=== PATIENT | female | born 1990 | race Caucasian/White ===

== ENCOUNTER 2018-05-28 15:16 | Emergency (ER) | payer SELFPAY ==
[~2018-05-28] VITALS: Ht 149.9 cm; Wt 77.6 kg
[2018-05-28] MEDS ORDERED: oxyCODONE/APAP 5/325 1 TAB TABLET PO ONE (16:00)
[2018-05-28] MEDS ORDERED: TRAM50TA PO (16:09)
[2018-05-28 16:15] VITALS: BP 153/104
--- NOTE | 2018-05-31 17:27 | ED.ADGEN ---
Past History Past Medical History: Hypertension, Other Past Surgical History: Appendectomy Alcohol Use: Occasionally Drug Use: None Adult General Chief Complaint Chief Complaint Migraine headache HPI HPI Patient is a 27-year-old female with chronic migraine headaches who presents with intermittent daily headaches for the past 3 weeks consistent location, pattern in severity as her chronic migraines. Patient states she's been taking her beta mary, Excedrin Migraine limited relief. She denies new symptoms, progression of existing symptoms, or stressors. Patient has recently had a CT of her head in the past 3 months which she states is nonacute. Patient contacted her primary care physician is not able to be seen for several days prompting her visitthe ED today[] Review of Systems Review of Systems View symptoms as per history of present illness. All other review symptoms are negative. All other systems were reviewed and found to be within normal limits, except as documented in this note. Current Medications Current Medications Current Medications Medications (Trade) Dose Ordered Sig/Joshua Start Time Stop Time Status Last Admin Dose Admin Oxycodone/ Acetaminophen (Percocet 5/325) 1 tab 1X ONCE 05/28/18 16:00 05/28/18 16:07 DC 05/28/18 16:01 1 TAB Allergies Allergies Allergies Coded Allergies Type Severity Reaction Last Updated Verified No Known Drug Allergies 05/28/18 No Physical Exam Physical Exam Constitutional: Well developed, well nourished, no acute distress, non-toxic appearance. [] HENT: Normocephalic, atraumatic, bilateral external ears normal, oropharynx moist, no oral exudates, nose normal. [] Eyes: PERRLA, EOMI, conjunctiva normal, no discharge. [] Neck: Normal range of motion, no tenderness, supple, no stridor. [] Cardiovascular:Heart rate regular rhythm, no murmur [] Lungs & Thorax: Bilateral breath sounds clear to auscultation [] Extremities: No tenderness, no cyanosis, no clubbing, ROM intact, no edema. [] Neurologic: Alert and oriented X 3 cranial nerves II through XII grossly intact , normal motor function, normal sensory function, no focal deficits noted. [] Psychologic: Affect normal, judgement normal, mood normal. [] Current Patient Data Vital Signs Vital Signs Date Time Temp Pulse Resp B/P (MAP) Pulse Ox O2 Delivery O2 Flow Rate FiO2 05/28/18 16:15 86 18 153/104 (120) 97 Room Air 05/28/18 15:16 97.8 EKG EKG [] Radiology/Procedures Radiology/Procedures [] Course & Med Decision Making Course & Med Decision Making Pertinent Labs and Imaging studies reviewed. (See chart for details) [Chronic migraine headaches, without focal neurologic deficits. Symptoms improved in the emergency department. Recommend PCPneurology follow-up with supportive care. Return precautions reviewed.] Final Impression Final Impression [#1 chronic current migraine headaches] Willie Disclaimer Dragon Disclaimer This electronic medical record was generated, in whole or in part, using a voice recognition dictation system. MIKAELA MUIR DO May 31, 2018 17:27
== END 2018-05-28 16:15 | disposition home or self-care (01) ==
LOC: ER 15:16
DX: G43.809 Other migraine, not intractable, without status migrainosus (principal); I10 Essential (primary) hypertension
CPT/HCPCS: 99283

== ENCOUNTER 2019-07-07 13:57 | Emergency (ER) | payer MEDICAID ==
[~2019-07-07] VITALS: Ht 149.9 cm; Wt 78.0 kg
[~2019-07-07 13:57] MED LIST: TRAM50TA PO
[2019-07-07 14:06] VITALS: BP 186/108
--- NOTE | 2019-07-07 14:43 | PHYS DOC ---
Past History Past Medical History: Hypertension, Other Past Surgical History: Appendectomy Alcohol Use: None Drug Use: None Adult General Chief Complaint Chief Complaint: HYPERTENSION HPI HPI [id number]-dwqr-nue female presents with hypertension. She is . She was at the [facility] and she was found have a blood pressure 186 over low 100s. They were able to get it down to 150s over 106. There were concerned and told her she did come the emergency room. The patient tells me that she has had high blood pressure intermittently for several years. She has hypertension without p regnancy. She has no symptoms. She is does not have headache or anything. She used to be on lisinopril which was switched to labetalol that she wanted of kids. She is out of that medication at this time. She was told to stop the medication because her blood pressure was normal when she goes to the store takes it at home. She has no complaints at this time. Review of Systems Review of Systems Constitutional: Denies fever or chills [] Eyes: Denies change in visual acuity, redness, or eye pain [] HENT: Denies nasal congestion or sore throat [] Respiratory: Denies cough or shortness of breath [] Cardiovascular: No additional information not addressed in HPI [] GI: Denies abdominal pain, nausea, vomiting, bloody stools or diarrhea [] : Denies dysuria or hematuria [] Musculoskeletal: Denies back pain or joint pain [] Integument: Denies rash or skin lesions [] Neurologic: Denies headache, focal weakness or sensory changes [] Endocrine: Denies polyuria or polydipsia [] All other systems were reviewed and found to be within normal limits, except as documented in this note. Allergies Allergies Allergies Coded Allergies Type Severity Reaction Last Updated Verified No Known Drug Allergies 05/28/18 No Physical Exam Physical Exam Constitutional: Well developed, well nourished, no acute distress, non-toxic appearance. [] HENT: Normocephalic, atraumatic, bilateral external ears normal, oropharynx moist, no oral exudates, nose normal. [] Eyes: PERRLA, EOMI, conjunctiva normal, no discharge. [] Neck: Normal range of motion, no tenderness, supple, no stridor. [] Cardiovascular:Heart rate regular rhythm, no murmur [] Lungs & Thorax: Bilateral breath sounds clear to auscultation [] Abdomen: Bowel sounds normal, soft, no tenderness, no masses, no pulsatile masses. [] Skin: Warm, dry, no erythema, no rash. [] Back: No tenderness, no CVA tenderness. [] Extremities: No tenderness, no cyanosis, no clubbing, ROM intact, no edema. [] Neurologic: Alert and oriented X 3, normal motor function, normal sensory function, no focal deficits noted. [] Psychologic: Affect normal, judgement normal, mood normal. [] Current Patient Data Vital Signs Vital Signs Date Time Temp Pulse Resp B/P (MAP) Pulse Ox O2 Delivery O2 Flow Rate FiO2 07/07/19 14:06 98.4 85 18 186/108 (134) 99 Room Air EKG EKG [] Radiology/Procedures Radiology/Procedures [] Course & Med Decision Making Course & Med Decision Making Pertinent Labs and Imaging studies reviewed. (See chart for details) I had a long conversation with the patient. She will track her blood pressure at home and reported to her OB. 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 She is waiting for her state Medicaid to come through. This should happen soon. I do not believe that anything needs to be done at this time. She is stable for discharge at this time. [] Dragon Disclaimer Dragon Disclaimer This electronic medical record was generated, in whole or in part, using a voice recognition dictation system. Departure Departure: Impression: Primary Impression: and not yet delivered in first trimester Additional Impression: Hypertension during Disposition: 01 HOME, SELF-CARE Condition: STABLE Referrals: JAMESON SHAW (PCP) Patient Instructions: Hypertension During , [id number], - First Trimester, [id number] Problem Qualifiers MIKAELA VIGIL DO Jul 07, 2019 14:43
== END 2019-07-07 14:47 | disposition home or self-care (01) ==
LOC: ER 13:57
DX: O16.1 Unspecified maternal hypertension, first trimester (principal); Z90.49 Acquired absence of other specified parts of digestive tract; Z3A.00 Weeks of gestation of pregnancy not specified
CPT/HCPCS: 99281

== ENCOUNTER 2019-08-12 08:56 | Emergency (ER) | payer MEDICAID, OTHER ==
[~2019-08-12] VITALS: Ht 149.9 cm; Wt 78.0 kg
[2019-08-12] MEDS ORDERED: IV NORMAL SALINE 1,000ML 1,000 ML IV SCH (09:12)
[2019-08-12] MEDS ORDERED: BUTORPHANOL 2 MG VIAL. IVP ONE (09:15)
[2019-08-12] MEDS ORDERED: ONDANSETRON PF 4 MG/2 ML VIAL. IVP ONE (09:15)
--- NOTE | 2019-08-12 09:17 | PHYS DOC ---
Past History Past Medical History: Hypertension, Other Past Surgical History: Appendectomy Alcohol Use: None Drug Use: None Adult General Chief Complaint Chief Complaint: HEADACHE HPI HPI Patient is a 28-year-old female who presents with complaint of migraine headache for the last 2 weeks. Patient does indicate that she is at 14 weeks gestational age. She states that headache is primarily on the right hand side and she describes as throbbing in nature. She does admit to photophobia as well as nausea and vomiting. Patient states that she thinks she is getting a bit dehydrated. She denies any abdominal pain.[] Review of Systems Review of Systems Constitutional: Denies fever or chills [] Respiratory: Denies cough or shortness of breath [] Cardiovascular: No additional information not addressed in HPI [] GI: Denies abdominal pain. Complains of nausea and vomiting without diarrhea [] Integument: Denies rash or skin lesions [] Neurologic: Complains of headache without focal weakness or sensory changes [] All other systems were reviewed and found to be within normal limits, except as documented in this note. Allergies Allergies Allergies Coded Allergies Type Severity Reaction Last Updated Verified No Known Drug Allergies 05/28/18 No Physical Exam Physical Exam Constitutional: Well developed, well nourished, no acute distress, non-toxic appearance. [] HENT: Normocephalic, atraumatic, bilateral external ears normal, oropharynx moist, no oral exudates, nose normal. [] Eyes: PERRLA, EOMI, conjunctiva normal, no discharge. [] Neck: Normal range of motion, no tenderness, supple, no stridor. [] Cardiovascular:Heart rate regular rhythm, no murmur [] Lungs & Thorax: Bilateral breath sounds clear to auscultation [] Abdomen: Bowel sounds normal, soft, no tenderness. [] Skin: Warm, dry, no erythema, no rash. [] Extremities: No tenderness, no cyanosis, no clubbing, ROM intact. [] Neurologic: Alert and oriented X 3, no focal deficits noted. [] EKG EKG [] Radiology/Procedures Radiology/Procedures [] Course & Med Decision Making Course & Med Decision Making Pertinent Labs and Imaging studies reviewed. (See chart for details) [] Dragon Disclaimer Dragon Disclaimer This electronic medical record was generated, in whole or in part, using a voice recognition dictation system. Departure Departure: Impression: Primary Impression: Migraine Additional Impression: UTI (urinary tract infection) Disposition: 01 HOME, SELF-CARE Condition: STABLE Referrals: PCP,NO (PCP) Patient Instructions: Migraine Headache, Urinary Tract Infection Scripts Ondansetron (ONDANSETRON ODT) 4 Mg Tab.rapdis 1 TAB PO PRN Q6-8HRS PRN for NAUSEA, #12 TAB Prov: HERMAN STANTON Jr. DO 08/12/19 Nitrofurantoin Monohyd/M-Cryst (MACROBID 100 MG CAPSULE) 100 Mg Capsule 1 CAP PO BID for UTI for 7 Days, #14 CAP 0 Refills Prov: HERMAN STANTON Jr. DO 08/12/19 Problem Qualifiers Primary Impression: Migraine Migraine type: unspecified Status migrainosus presence: without status migrainosus Intractability: not intractable Qualified Codes: G43.909 - Migraine, unspecified, not intractable, without status migrainosus Additional Impression: UTI (urinary tract infection) Urinary tract infection type: site unspecified Hematuria presence: without hematuria Qualified Codes: N39.0 - Urinary tract infection, site not specified HERMAN STANTON Jr. DO Aug 12, 2019 09:17
[2019-08-12 09:51] LABS: BASO % 0 % (0-3); EOS % 0 % (0-3); HEMATOCRIT 39.3 % (36.0-47.0); HEMOGLOBIN 13.1 g/dL (12.0-15.5); LYMPH # 0.7 x10^3/uL (1.0-4.8); LYMPH % 9 % (24-48); MEAN CORPUSCULAR HEMOGLOBIN 29 pg (25-35); MEAN CORPUSCULAR HGB CONC 33 g/dL (31-37); MEAN CORPUSCULAR VOLUME 88 fL (79-100); MONO % 12 % (0-9); NEUT # 6.4 x10^3uL (1.8-7.7); NEUT % 79 % (31-73); PLATELET COUNT 247 x10^3/uL (140-400); RED BLOOD COUNT 4.46 x10^6/uL (3.50-5.40); RED CELL DISTRIBUTION WIDTH 14.9 % (11.5-14.5); WHITE BLOOD COUNT 8.1 x10^3/uL (4.0-11.0)
[2019-08-12 09:53] LABS: CALCIUM 8.7 mg/dL (8.5-10.1); CREATININE 0.6 mg/dL (0.6-1.0); POTASSIUM 3.7 mmol/L (3.5-5.1)
[2019-08-12 09:59] LABS: ALBUMIN 2.9 g/dL (3.4-5.0); ALBUMIN/GLOBULIN RATIO 0.7 (1.0-1.7); TOTAL BILIRUBIN 0.4 mg/dL (0.2-1.0); TOTAL PROTEIN 6.9 g/dL (6.4-8.2)
[2019-08-12 10:16] LABS: COLOR,URINE YELLOW
[2019-08-12 10:17] LABS: BACTERIA,URINE MANY /HPF (0-FEW); BILIRUBIN,URINE NEG (NEG); CLARITY,URINE CLOUDY; GLUCOSE,URINE NEG (NEG); NITRITE,URINE NEG (NEG); SQUAMOUS EPITHELIAL CELL,UR MANY /LPF; UROBILINOGEN,URINE 0.2 mg/dL (0.2 mg/dL); WBC,URINE 20-40 /HPF (0-4)
[2019-08-12] MEDS ORDERED: ONDA4TAB12 PO (10:27)
[2019-08-12] MEDS ORDERED: NITR100C62 PO (10:27)
== END 2019-08-12 10:03 | disposition home or self-care (01) ==
LOC: ER 08:56
DX: O23.41 Unspecified infection of urinary tract in pregnancy, first trimester (principal); O16.1 Unspecified maternal hypertension, first trimester; G43.909 Migraine, unspecified, not intractable, without status migrainosus; O21.9 Vomiting of pregnancy, unspecified; Z3A.14 14 weeks gestation of pregnancy
CPT/HCPCS: 36415; 80053; 81001; 83690; 85025; 87086; 96361; 96374; 96375; J0595; J2405; 99284-25; J7030

== ENCOUNTER 2020-01-20 23:26 | Emergency (ER) | payer OTHER ==
[~2020-01-20] VITALS: Ht 162.6 cm; Wt 88.3 kg
[2020-01-20 23:26] VITALS: BP 163/96
[~2020-01-20 23:26] MED LIST changes: +NITR100C62 PO; +ONDA4TAB12 PO
[2020-01-20] MEDS ORDERED: IV RINGERS SOLUTION,LACTATED 1,000 ML IV SCH (23:55)
--- NOTE | 2020-01-21 00:07 | PHYS DOC ---
Past History Past Medical History: Hypertension, Other Past Surgical History: Appendectomy Alcohol Use: None Drug Use: None General Adult EDM: Chief Complaint: ABDOMINAL PAIN IN HPI: HPI: "..I been hurting cheo.. up here on [place]...but this is my lst ...and I am high risks..because of my diabetes..hypertension... ...and past changes to my cervix..." Patient is a 29 year old female who presents with above hx and complaints of abdomen pain and planned delivery to be induced on the 01/30 at . Patient has been following at for care. Has been told she is a high risk because of hypertension and diabetes. Patient cheo presents with abdomen pain lower pelvic and left upper quadrant. Patient denies any trauma. Patient denies any intake of bad food. No recent travel or specific ill contacts. No history immunosuppression.. 1. Has had 3 lifetime sex partners. Patient denies any history of STDs. Patient has had a cervical treatment for abnormal cells. Review of Systems: Review of Systems: Constitutional: Denies fever or chills Eyes: Denies change in visual acuity HENT: Denies nasal congestion or sore throat Respiratory: Denies cough or shortness of breath Cardiovascular: Denies chest pain or edema GI: Complains of abdominal pain, nausea,. constipation. Denies vomiting, bloody stools or diarrhea : Denies dysuria Musculoskeletal: Denies back pain or joint pain Integument: Denies rash Neurologic: Denies headache, focal weakness or sensory changes Endocrine: Denies polyuria or polydipsia Lymphatic: Denies swollen glands Psychiatric: Denies depression or anxiety Heart Score: Risk Factors: Risk Factors: DM, Current or recent (<one month) smoker, HTN, HLP, family history of CAD, obesity. Risk Scores: Score 0 - 3: 2.5% MACE over next 6 weeks - Discharge Home Score 4 - 6: 20.3% MACE over next 6 weeks - Admit for Clinical Observation Score 7 - 10: 72.7% MACE over next 6 weeks - Early Invasive Strategies Family History: Family History: Noncontributory Current Medications: Current Meds: Current Medications Medications (Trade) Dose Ordered Sig/Joshua Start Time Stop Time Status Last Admin Dose Admin Lactated Ringer's 1,000 ml @ 1,000 mls/hr Q1H 01/20/20 23:55 01/21/20 00:54 UNV Allergies: Allergies: Allergies Coded Allergies Type Severity Reaction Last Updated Verified No Known Drug Allergies 05/28/18 No Physical Exam: PE: Constitutional: Moderate acute distress, non-toxic appearance. [] HENT: Normocephalic, atraumatic, bilateral external ears normal, oropharynx moist, no oral exudates, nose normal. [] Eyes: PERRLA, EOMI, conjunctiva normal, no discharge. Glasses Neck: Normal range of motion, no tenderness, supple, no stridor. [] Cardiovascular:Heart rate regular rhythm, no murmur [] Lungs & Thorax: Bilateral breath sounds equal at apex on auscultation [] Abdomen: Bowel sounds normal, soft, left upper quadrant tenderness, distended no masses, no pulsatile masses. [] Gravid. Os is closed. No cervical motion tenderness. Mild discharge. Hard stool in vault. Old surgery scars Skin: Warm, dry, no erythema, no rash. [] Back: No tenderness, no CVA tenderness. [] Extremities: No tenderness, no cyanosis, no clubbing, ROM intact, ankle edema. [] Neurologic: Alert and oriented X 3, normal motor function, normal sensory function, no focal deficits noted. [] DTRs +2 patella and brachial. Psychologic: Affect anxious, judgement normal, mood normal. [] EKG: EKG: [] Radiology/Procedures: Radiology/Procedures: [][address] [address] IMAGING REPORT Signed PATIENT: CORINA ROCHA ACCOUNT: [id number] : 1990 LOCATION: ER AGE: 29 SEX: F EXAM STATUS: REG ER ORD. PHYSICIAN: DEMOND HIGGINS MD REASON: ABD pain preg. PROCEDURE: OB LIMITED Study: US OB LIMITED Clinical Indication: Abdominal pain in the setting of a known . Comparison: None. Technique: Multiple grayscale images, color Doppler, and M-mode images of the uterus are obtained. Findings: Single intrauterine gestation in cephalic presentation. The placenta is anterior in location without evidence of placenta previa. The amount of amniotic fluid appears appropriate. Amniotic fluid index is 9.2 cm. Cervical length was not able to be measured. Biometrical data: BPD = 8.7 cm for 35 weeks 0 days. HC = 29.1 cm for 32 weeks 0 days. AC = 29.3 cm for 33 weeks 2 days. FL = 6.5 cm for 33 weeks 5 days. CI ratio = 95.8. HC/AC ratio = 0.99. FL/HC ratio = 22.5. FL/AC ratio = 22.3. Overall, the estimated sonographic gestational age is 33 weeks 4 days for an estimated date of delivery of 03/06/2020. The estimated date of delivery provided by the last menstrual period is 01/31/2020. Estimated weight is 2191 grams. A 4 chamber heart is identified with positive cardiac activity. The estimated heart rate is 144 beats per minute. A complete survey was not performed on this limited study. Impression: 1. Single live intrauterine gestation with estimated sonographic gestational age of 33 weeks 4 days corresponding to an estimated delivery date of 03/06/2020. Estimated delivery date by last menstrual period of01/31/2020. weight estimate of 2191 g which is below the 10th percentile (small for gestational age). 2. Amniotic fluid volume is within normal limits with an CARLOS of 9.2. Anterior placenta without previa. Cephalic presentation at this time. Cervical length was not able to be measured. Electronically signed by: TAMEKA BAEZA MD (01/21/2020 1:43 AM) [id number] DICTATED AND SIGNED BY: TAMEKA BAEZA MD DATE: 01/21/20 0143 CC: DEMOND HIGGINS MD; PCP,UNKNOWN ~ Course & Med Decision Making: Course & Med Decision Making Pertinent Labs and Imaging studies reviewed. (See chart for details) Patient stay on clear fluid diet next 24 hours. Patient follow-up pending culture. Patient must follow-up at her [facility] [employer] at because of her high risk secondary to hypertension and diabetes. Take meds as directed. Take only Tylenol for pain. Take Keflex 500 mg 3 times a day. Any further issues must follow-up at due to proximity her delivery time. Impression: 1. Intrauterine at 38 weeks and 4 days- Clinical. Wt./33 weeks and 4 days. 2. History of hypertension 3. History of gestational diabetes 4. UTI 5. Vaginal discharge- WBC's 6. BHCG 6080 7. Blood type O + positive 8. Hgb 10.5 9. Elevated Anselmo. Direct 0.5,AST 68, Alk Phos 233 10. Constipation [] Dragon Disclaimer: Dragon Disclaimer: This electronic medical record was generated, in whole or in part, using a voice recognition dictation system. Departure Departure: Disposition: HOME/RESIDENCE PRIOR TO ADM Condition: STABLE Referrals: PCP,UNKNOWN (PCP) Justification of Admission: Justification of Admission: Justification of Admission Dx: N/A Dragon Disclaimer This chart was dictated in whole or in part using Voice Recognition software in a busy, high-work load, and often noisy Emergency Department environment. It may contain unintended and wholly unrecognized errors or omissions. DEMOND HIGGINS MD Jan 21, 2020 00:07
[2020-01-21 01:03] LABS: BASO % 0 % (0-3); EOS % 0 % (0-3); HEMATOCRIT 32.6 % (36.0-47.0); HEMOGLOBIN 10.5 g/dL (12.0-15.5); LYMPH % 10 % (24-48); MEAN CORPUSCULAR HEMOGLOBIN 27 pg (25-35); MEAN CORPUSCULAR HGB CONC 32 g/dL (31-37); MEAN CORPUSCULAR VOLUME 83 fL (79-100); MONO # 0.5 x10^3/uL (0.0-1.1); MONO % 5 % (0-9); NEUT # 8.6 x10^3uL (1.8-7.7); NEUT % 85 % (31-73); PLATELET COUNT 253 x10^3/uL (140-400); RED BLOOD COUNT 3.95 x10^6/uL (3.50-5.40); RED CELL DISTRIBUTION WIDTH 16.9 % (11.5-14.5); WHITE BLOOD COUNT 10.2 x10^3/uL (4.0-11.0)
[2020-01-21 01:11] LABS: BARBITURATES NEG (NEG); BENZODIAZEPINES NEG (NEG); CANNABINOIDS NEG (NEG); COCAINE NEG (NEG); METHADONE NEG (NEG); OPIATES NEG (NEG); PHENCYCLIDINE NEG (NEG)
[2020-01-21 01:12] LABS: CALCIUM 9.6 mg/dL (8.5-10.1); CREATININE 0.9 mg/dL (0.6-1.0); POTASSIUM 3.7 mmol/L (3.5-5.1)
[2020-01-21 01:12] LABS: AMPHETAMINE/METHAMPHETAMINE NEG (NEG)
[2020-01-21 01:19] LABS: ALBUMIN 2.5 g/dL (3.4-5.0); DIRECT BILIRUBIN 0.5 mg/dL (0.0-0.2); TOTAL BILIRUBIN 0.7 mg/dL (0.2-1.0); TOTAL PROTEIN 7.2 g/dL (6.4-8.2)
[2020-01-21 01:28] LABS: BACTERIA,URINE FEW /HPF (0-FEW); BILIRUBIN,URINE SMALL (NEG); CLARITY,URINE HAZY; COLOR,URINE AMBER; GLUCOSE,URINE 100 mg/dL (NEG); NITRITE,URINE NEG (NEG); RBC,URINE 0 /HPF (0-2); SQUAMOUS EPITHELIAL CELL,UR MOD /LPF; UROBILINOGEN,URINE >=8.0 mg/dL (0.2 mg/dL)
--- NOTE | 2020-01-21 01:46 | RAD ---
Study: US OB LIMITED Clinical Indication: Abdominal pain in the setting of a known . Comparison: None. Technique: Multiple grayscale images, color Doppler, and M-mode images of the uterus are obtained. Findings: Single intrauterine gestation in cephalic presentation. The placenta is anterior in location without evidence of placenta previa. The amount of amniotic fluid appears appropriate. Amniotic fluid index is 9.2 cm. Cervical length was not able to be measured. Biometrical data: BPD = 8.7 cm for 35 weeks 0 days. HC = 29.1 cm for 32 weeks 0 days. AC = 29.3 cm for 33 weeks 2 days. FL = 6.5 cm for 33 weeks 5 days. CI ratio = 95.8. HC/AC ratio = 0.99. FL/HC ratio = 22.5. FL/AC ratio = 22.3. Overall, the estimated sonographic gestational age is 33 weeks 4 days for an estimated date of delivery of 03/06/2020. The estimated date of delivery provided by the last menstrual period is 01/31/2020. Estimated weight is 2191 grams. A 4 chamber heart is identified with positive cardiac activity. The estimated heart rate is 144 beats per minute. A complete survey was not performed on this limited study. Impression: 1. Single live intrauterine gestation with estimated sonographic gestational age of 33 weeks 4 days corresponding to an estimated delivery date of 03/06/2020. Estimated delivery date by last menstrual period of01/31/2020. weight estimate of 2191 g which is below the 10th percentile (small for gestational age). 2. Amniotic fluid volume is within normal limits with an CARLOS of 9.2. Anterior placenta without previa. Cephalic presentation at this time. Cervical length was not able to be measured. Electronically signed by: TAMEKA BAEZA MD (01/21/2020 1:43 AM) [id number]
[2020-01-21] MEDS ORDERED: IV NORMAL SALINE 50ML 50 ML ONE (02:14)
[2020-01-21] MEDS ORDERED: cefTRIAXone SODIUM 1 GM VIAL ONE (02:14)
[2020-01-21] MEDS ORDERED: MAGNESIUM HYDROXIDE 2,400 MG/30 ML ORAL.SUSP. PO ONE (02:30)
[2020-01-21] MEDS ORDERED: AZITHROMYCIN 250 MG TABLET. PO ONE (02:30)
[2020-01-22 20:07] LABS: CHLAMYDIA PROBE Negative (Negative)
== END 2020-01-21 02:45 | disposition home or self-care (01) ==
LOC: ER 23:26
DX: O23.43 Unspecified infection of urinary tract in pregnancy, third trimester (principal); O46.91 Antepartum hemorrhage, unspecified, first trimester; O16.3 Unspecified maternal hypertension, third trimester; K59.00 Constipation, unspecified; R79.89 Other specified abnormal findings of blood chemistry; O24.419 Gestational diabetes mellitus in pregnancy, unspecified control; Z3A.33 33 weeks gestation of pregnancy
CPT/HCPCS: 36415; 76815; 80048; 80076; 80307; 81001; 83690; 84702; 85025; 85610; 85730; 86900; 86901; 87491; 87591; 96361; 96365; 99284; J0456; J0696; J7120; Q0111; 96360

== ENCOUNTER 2020-06-20 18:25 | Emergency (ER) | payer OTHER ==
[~2020-06-20] VITALS: Ht 149.9 cm; Wt 77.6 kg
--- NOTE | 2020-06-20 19:00 | PHYS DOC ---
Past History Past Medical History: Hypertension (CLARITA JOSEPH APRN) Past Surgical History: Appendectomy (CLARITA JOSEPH APRN) Alcohol Use: None Drug Use: None (CLARITA JOSEPH APRN) General Adult EDM: Chief Complaint: FLANK PAIN HPI: HPI: Patient is a 29-year-old female who presents with left-sided flank pain that radiates into her abdomen. Patient states the symptoms started 3 days ago but today the pain has been constant, sharp. Patient denies nausea, vomiting, diarrhea. Denies fever. Denies pain with urination but does state "I feel like I have been peeing more". Patient denies taking anything for the pain at home. (CLARITA JOSEPH APRN) Review of Systems: Review of Systems: Constitutional: Denies fever or chills Eyes: Denies change in visual acuity HENT: Denies nasal congestion or sore throat Respiratory: Denies cough or shortness of breath Cardiovascular: Denies chest pain or edema GI: Reports abdominal pain. Denies nausea, vomiting, bloody stools or diarrhea : Denies dysuria, reports frequency Musculoskeletal: Denies back pain or joint pain Integument: Denies rash Neurologic: Denies headache, focal weakness or sensory changes Endocrine: Denies polyuria or polydipsia Lymphatic: Denies swollen glands Psychiatric: Denies depression or anxiety (CLARITA JOSEPH APRN) Allergies: Allergies: Allergies Coded Allergies Type Severity Reaction Last Updated Verified No Known Drug Allergies 06/20/20 No (CLARITA JOSEPH APRN) Physical Exam: PE: Constitutional: Well developed, well nourished, no acute distress, non-toxic appearance. [] HENT: Normocephalic, atraumatic, bilateral external ears normal, oropharynx moist, no oral exudates, nose normal. [] Eyes: PERRLA, EOMI, conjunctiva normal, no discharge. [] Neck: Normal range of motion, no tenderness, supple, no stridor. [] Cardiovascular:Heart rate regular rhythm, no murmur [] Lungs & Thorax: Bilateral breath sounds clear to auscultation [] Abdomen: Bowel sounds normal, soft, tenderness to left side of abdomen Skin: Warm, dry, no erythema, no rash. [] Back: No tenderness, left-sided CVA tenderness. [] Extremities: No tenderness, no cyanosis, no clubbing, ROM intact, no edema. [] Neurologic: Alert and oriented X 3, normal motor function, normal sensory function, no focal deficits noted. [] Psychologic: Affect normal, judgement normal, mood normal. [] (CLARITA JOSEPH RACK PUSHER) Current Patient Data: Vital Signs: Vital Signs Date Time Temp Pulse Resp B/P (MAP) Pulse Ox O2 Delivery O2 Flow Rate FiO2 06/20/20 18:37 98.3 95 18 172/118 (136) 97 Room Air (CLARITA JOSEPH RACK PUSHER) EKG: EKG: [] (CLARITA JOSEPH RACK PUSHER) Radiology/Procedures: Radiology/Procedures: []EXAM: CT Abdomen and Pelvis without IV contrast CLINICAL HISTORY: LEFT SIDED FLANK PAIN X 3 DAYS COMPARISON: none TECHNIQUE: Helical CT of the abdomen and pelvis without intravenous contrast. Axial, coronal and sagittal reformatted images were generated. PQRS compliance statement - One or more of the following individualized dose reduction techniques were utilized for this study: 1. Automated exposure control 2. Adjustment of the mA and/or kV according to patient size 3. Use of iterative reconstruction technique FINDINGS: Lack of intravenous contrast limits evaluation of solid organs, vasculature, and lymph nodes. Lower chest: Trace pleural effusions with pleural thickening. Abdomen and Pelvis: Liver, spleen, adrenal glands, pancreas are unremarkable. Duodenal diverticulum is seen. Wall thickening about the gallbladder with pericholecystic fluid and calcified gallstone consistent with cholecystitis. High density focus within the cystic duct likely gallstone within the cystic duct. No biliary duct dilatation. Moderate colonic stool content is seen. Mild infiltration about the hepatic flexure likely reactive from adjacent gallbladder changes. No small or large bowel dilatation. No bowel obstruction. A few mildly prominent mesenteric lymph nodes are seen. No abdominal or pelvic lymphadenopathy by size criteria. IUD seen within the uterus. Bladder is unremarkable. Fat-containing lesion at the lower pole of the right kidney likely angiomyolipoma. No hydronephrosis. No hydroureter. Trace fat-containing periumbilical hernia is seen. Bones: No aggressive osseous lesion is seen. IMPRESSION: Gallbladder wall thickening with associated pericholecystic infiltration and calcified gallstones is most consistent with acute cholecystitis. A gallstone is likely seen within the cystic duct. Moderate colonic stool content. No bowel obstruction. Trace pleural effusions. Electronically signed by: Chilango Botello MD (06/20/2020 8:01 PM) MARY KATE EXAM: AP View of the chest DATE: 06/20/2020 7:25 PM INDICATION: Reason: abdominal pain / Spl. Instructions: / History: COMPARISON: No Prior FINDINGS: The heart is not enlarged. Mediastinal and hilar contours are normal. No focal parenchymal airspace opacity. No pleural effusion or pneumothorax. IMPRESSION: 1. No radiographic evidence for acute cardiopulmonary process. Electronically signed by: Chilango Botello MD (06/20/2020 8:02 PM) GUS (CLARITA JOSEPH APRN) Heart Score: Risk Factors: Risk Factors: DM, Current or recent (<one month) smoker, HTN, HLP, family history of CAD, obesity. Risk Scores: Score 0 - 3: 2.5% MACE over next 6 weeks - Discharge Home Score 4 - 6: 20.3% MACE over next 6 weeks - Admit for Clinical Observation Score 7 - 10: 72.7% MACE over next 6 weeks - Early Invasive Strategies (CLARITA JOSEPH APRN) Course & Med Decision Making: Course & Med Decision Making Pertinent Labs and Imaging studies reviewed. (See chart for details) []Patient is a 29-year-old female who presents with left-sided flank pain that radiates into her abdomen. Patient states the symptoms started 3 days ago but today the pain has been constant, sharp. Patient denies nausea, vomiting, diarrhea. Denies fever. Denies pain with urination but does state "I feel like I have been peeing more". Patient denies taking anything for the pain at home. CT of abdomen and pelvis ordered to rule out kidney stone. UA ordered. WBCs in urine. Patient reports frequency. Antibiotic ordered for UTI. CT of abdomen positive for acute cholecystitis. Patient will be transferred to [place] for surgeon consult. Patient agrees with this plan. Patient reports pain has improved since getting Torodal. Denies needing anything for pain at this time. (CLARITA JOSEPH APRN) Dragon Disclaimer: Dragon Disclaimer: This electronic medical record was generated, in whole or in part, using a voice recognition dictation system. (CLARITA JOSEPH APRN) Departure Departure: Impression: Primary Impression: Cholecystitis, acute Disposition: 05 DC/TRF OTHER TYPE INSTITUTI Condition: STABLE Referrals: PCP,NO (PCP) Attending Co-Sign Attending Co-Sign The patient was seen and interviewed as well as examined at the bedside. The chart was reviewed. The case was discussed. Agree with the plan of care. (DEMOND HIGGINS MD) CLARITA JOSEPH APRN Jun 20, 2020 19:00 DEMOND HIGGINS MD Jun 21, 2020 03:55
--- NOTE | 2020-06-20 19:21 | EKG ---
[address] [address] Test Date: 2020-06-20 Test Time: 19:15:21 Pat Name: CORINA ROCHA Department: Room: Gender: F Optical Assistant: : 1990 Requested By: CLARITA JOSEPH Order Number: [id number] Reading MD: Measurements Intervals [place] Rate: 87 P: 149 PA: 140 QRS: -7 QRSD: 106 T: 42 QT: 348 QTc: 419 Interpretive Statements SINUS RHYTHM LEFT ATRIAL ABNORMALITY LEFTWARD AXIS R-S TRANSITION ZONE IN V LEADS DISPLACED TO THE LEFT ABNORMAL ECG RI6.02 No previous ECG available for comparison
[2020-06-20 19:39] LABS: BASO # 0.1 x10^3/uL (0.0-0.2); BASO % 1 % (0-3); EOS # 0.2 x10^3/uL (0.0-0.7); EOS % 2 % (0-3); HEMATOCRIT 43.2 % (36.0-47.0); HEMOGLOBIN 14.2 g/dL (12.0-15.5); LYMPH # 2.2 x10^3/uL (1.0-4.8); LYMPH % 24 % (24-48); MEAN CORPUSCULAR HEMOGLOBIN 28 pg (25-35); MEAN CORPUSCULAR HGB CONC 33 g/dL (31-37); MEAN CORPUSCULAR VOLUME 85 fL (79-100); MONO # 0.8 x10^3/uL (0.0-1.1); MONO % 9 % (0-9); NEUT % 65 % (31-73); PLATELET COUNT 260 x10^3/uL (140-400); RED BLOOD COUNT 5.07 x10^6/uL (3.50-5.40); RED CELL DISTRIBUTION WIDTH 14.2 % (11.5-14.5); WHITE BLOOD COUNT 9.3 x10^3/uL (4.0-11.0)
[2020-06-20 19:45] LABS: CALCIUM 9.8 mg/dL (8.5-10.1); CREATININE 0.7 mg/dL (0.6-1.0); GFR 98.9; POTASSIUM 3.6 mmol/L (3.5-5.1)
[2020-06-20 19:51] LABS: BILIRUBIN,URINE NEG (NEG); CLARITY,URINE HAZY; COLOR,URINE STRAW; GLUCOSE,URINE NEG (NEG); NITRITE,URINE NEG (NEG); UROBILINOGEN,URINE 0.2 mg/dL (0.2 mg/dL)
[2020-06-20 19:51] LABS: ALBUMIN 3.7 g/dL (3.4-5.0); ALBUMIN/GLOBULIN RATIO 0.9 (1.0-1.7); TOTAL BILIRUBIN 0.3 mg/dL (0.2-1.0); TOTAL PROTEIN 7.9 g/dL (6.4-8.2)
[2020-06-20 19:52] LABS: BACTERIA,URINE MOD /HPF (0-FEW); SQUAMOUS EPITHELIAL CELL,UR MANY /LPF
--- NOTE | 2020-06-20 20:03 | RAD ---
EXAM: CT Abdomen and Pelvis without IV contrast CLINICAL HISTORY: LEFT SIDED FLANK PAIN X 3 DAYS COMPARISON: none TECHNIQUE: Helical CT of the abdomen and pelvis without intravenous contrast. Axial, coronal and sagi ttal reformatted images were generated. PQRS compliance statement - One or more of the following individualized dose reduction techniques wer e utilized for this study: 1. Automated exposure control 2. Adjustment of the mA and/or kV according to patient size 3. Use of iterative reconstruction technique FINDINGS: Lack of intravenous contrast limits evaluation of solid organs, vasculature, and lymph nodes. Lower chest: Trace pleural effusions with pleural thickening. Abdomen and Pelvis: Liver, spleen, adrenal glands, pancreas are unremarkable. Duodenal diverticulum is seen. Wall thickening about the gallbladder with pericholecystic fluid and calcified gallstone consistent w ith cholecystitis. High density focus within the cystic duct likely gallstone within the cystic duct. No biliary duct dilatation. Moderate colonic stool content is seen. Mild infiltration about the hepatic flexure likely reactive f rom adjacent gallbladder changes. No small or large bowel dilatation. No bowel obstruction. A few mil dly prominent mesenteric lymph nodes are seen. No abdominal or pelvic lymphadenopathy by size criteri a. IUD seen within the uterus. Bladder is unremarkable. Fat-containing lesion at the lower pole of the right kidney likely angiomyolipoma. No hydronephrosis. No hydroureter. Trace fat-containing periumbilical hernia is seen. Bones: No aggressive osseous lesion is seen. IMPRESSION: Gallbladder wall thickening with associated pericholecystic infiltration and calcified gallstones is most consistent with acute cholecystitis. A gallstone is likely seen within the cystic duct. Moderate colonic stool content. No bowel obstruction. Trace pleural effusions. Electronically signed by: Chilango Botello MD (06/20/2020 8:01 PM) [facility]
--- NOTE | 2020-06-20 20:05 | RAD ---
EXAM: AP View of the chest DATE: 06/20/2020 7:25 PM INDICATION: Reason: abdominal pain / Spl. Instructions: / History: COMPARISON: No Prior FINDINGS: The heart is not enlarged. Mediastinal and hilar contours are normal. No focal parenchymal airspace opacity. No pleural effusion or pneumothorax. IMPRESSION: 1. No radiographic evidence for acute cardiopulmonary process. Electronically signed by: Chilango Botello MD (06/20/2020 8:02 PM) MARY KATE
[2020-06-20 22:10] VITALS: BP 142/80
== END 2020-06-20 23:00 | disposition short-term general hospital (02) ==
LOC: ER 18:25
DX: K81.0 Acute cholecystitis (principal); I10 Essential (primary) hypertension; Z20.822 Contact with and (suspected) exposure to COVID-19; Z90.49 Acquired absence of other specified parts of digestive tract
CPT/HCPCS: 36415; 71045; 74176; 80053; 81001; 81025; 85025; 87086; 87426; 93005; 99285; C9803; U0003